=== PATIENT | female | born 1985 | race Caucasian/White ===

== ENCOUNTER 2021-10-01 14:10 | Observation (INO) ==
--- NOTE | 2021-10-01 14:38 | Emergency Department Note ---
Impression & Plan Acute appendicitis ED Provider Note Provider: Maged Crouch MD DATE OF SERVICE: 10/01/2021 CHIEF COMPLAINT: appy HISTORY OF PRESENT ILLNESS: Patient is a healthy 36-year-old female presenting here in transfer from [facility]. She was evaluated there for abdominal pain starting mid abdomen yesterday to the right lower quadrant. No prior trauma reported. Not having vomiting issues. No fevers reported. No history of abdominal surgeries reported. At the outside facility had CMP as well as CBC without significant abnormality. No leukocytosis. CT imaging there showed a 12 mm appendix without evidence of perforation. They have no available general surgery care at their facility this weekend and thus contacted us for transfer. She arrives with a disc of her images as well as the reports. Had a negative COVID PCR at the outside facility. Patient has been n.p.o. since last night. She received a dose of Zosyn at the outside facility. Patient reports worsening pain with movement but denies receiving pain medication earlier or the want for pain medication at this time. REVIEW OF SYSTEMS: A total of 10 review of systems was obtained and negative except as stated above in the HPI. PAST MEDICAL HISTORY: As noted above MEDICATIONS: Vitamin SOCIAL HISTORY: Works as a veterinary technician, lives at home with her 3 children, nursing her youngest who is 4-1/2 months old PHYSICAL EXAM: GENERAL: alert and oriented in no acute distress on stretcher Head: normocephalic and atraumatic EYES: No injection, discharge or icterus. NECK: Trachea midline. Supple. ENT: Mucous membranes pink and moist. LUNGS: Airway patent. No retractions or tachypnea HEART: Regular rate and rhythm. No chest wall tenderness ABDOMEN: Soft right quadrant pain with guarding and some rebound SKIN: Acyanotic, warm, dry, without rashes EXTREMITIES: Without swelling, tenderness or deformity NEUROLOGICAL: No focal deficits. No aphasia. No facial droop or slurred speech. Ambulatory. Differential includes Appendicitis, ovarian cyst, ovarian torsion, ectopic , TOA, PID, infections, diverticulitis, UTI, obstruction, mesenteric ischemia, aortic pathology, inflammatory bowel disease, renal colic, PUD, pancreatitis, biliary pathology, hernia, volvulus, constipation, as well as other pathologies. IMPRESSION/MEDICAL DECISION MAKING: Patient with mid abdominal pain right lower quadrant. Outside facility did extensive work-up including CT scan showing appendicitis. Uncomplicated appendicitis and no history of significant surgical complications or abdominal surgeries. Blood work at the outside facility without evidence of COVID or evidence of significant cytosis or sepsis. Patient declines pain medicine here. She is well-appearing but does have some guarding and rebound on examination consistent with her diagnosis of appendicitis. Given Zosyn at the outside facility. Discussed with the surgical team here will evaluate for surgical treatment of her appendicitis. Patient does have her records including CD of the outside facility with her. DIAGNOSIS: Acute appendicitis DISPOSITION: Evaluation by the surgical team for appendectomy Past Med/Surg History Social History Smoking Status: Never smoker Feels Safe at Home: Yes Allergies Allergies Allergy/AdvReac Type Severity Reaction Status Date / Time No Known Allergies Allergy Unverified 09/12/12 14:09 Results & Data (ED) Vital Signs Vital Signs - 24 hr 10/01/21 14:23 10/01/21 14:44 Temperature 37.6 C H Temperature Source Temporal Artery Scan Pulse Rate 97 H Pulse Rate [Finger] 99 H Respiratory Rate 20 16 Respiratory Effort / Characteristics Non-Labored Spontaneous Respiratory Depth Normal Respiratory Pattern Regular Blood Pressure 91/54 L Blood Pressure [Left Arm] 103/53 L Blood Pressure Mean 66 Blood Pressure Mean [Left Arm] 69 Pulse Oximetry 97 99 Oxygen Delivery Method Room Air Room Air Sepsis Recent Fever Within 48 Hours No Sepsis New/Unexplained Change in Mental Status No Sepsis Action Taken by Nursing No Action Required Discharge Plan Visit Data Chief Complaint: Referred by Doctor Stated Complaint: APPENDICTIS;REFERRED FOR SURGERY ED Provider: Maged Crouch Discharge Problem: Acute appendicitis Patient Disposition: Being Evaluated by Surgeon Forms Stand Alone Forms: [facility] Referrals Referrals: PCP,NO [Primary Care Provider] - Discharge Problem: Acute appendicitis Qualifiers: Acute appendicitis type: with localized peritonitis Appendicitis gangrene presence: unspecified whether gangrene present Appendicitis perforation presence: without perforation Appendicitis abscess presence: without abscess Qualified Code(s): K35.30 - Acute appendicitis with localized peritonitis, without perforation or gangrene
[2021-10-01] MEDS ORDERED: ONDANSETRON INJ 2 MG/ML 2 ML VIAL IV PRN (15:52)
[2021-10-01] MEDS ORDERED: PIPERACILLIN/TAZOBACTAM 3.375 GM in DEXTROSE 5% 100 ML IV ONE (16:00)
--- NOTE | 2021-10-01 16:30 | History & Physical Report ---
Date of Service October 01, 2021 Assessment & Plan (1) Acute appendicitis: Plan: 36-year-old female who was transferred from [facility] with diagnosis of acute appendicitis. Pain started yesterday morning which was generalized in the mid abdomen and then radiated down to the right lower side. Labs at [facility] showed no leukocytosis. CT scan of the abdomen pelvis with IV contrast showing dilated appendix to 12 mm with periappendiceal inflammation and no evidence of abscess or perforation. On examination she is tender in the right mid to right lower quadrant with some guarding and positive McBurney's point however no rigidity or peritonitis. Plan: Discussed imaging and lab findings with patient and her family. These are consistent with acute appendicitis as well as her examination. Discussed indication for laparoscopic appendectomy to prevent further pain and perforation or abscess. Discussed procedure including risks of procedure including bleeding, infection, injury to surrounding organs tissues, staple line leak, intra-abdominal abscess, incisional hernia, blood clots. Also discussed expected recovery time and restrictions. Patient will sign informed consent with Dr. Macias preoperatively Will continue antibiotics in the form of IV Zosyn Keep n.p.o. She was already COVID tested at [facility] with PCR testing which was negative. Discussed with Dr. Macias who will evaluate patient preoperatively and obtain informed consent History of Present Illness Chief Complaint: Acute appendicitis Primary Care Provider: AVIS PCP Nicki is a 36-year-old female who was transferred from [facility] for acute appendicitis. She states that she started having generalized mid abdominal pain yesterday morning which then radiated down to her right lower side. She was seen in [facility] when she had labs which showed no leukocytosis. She had a CT scan of the abdomen and pelvis with IV contrast which showed dilated appendix a 12 mm with surrounding inflammation however no evidence of abscesses or perforation. She had COVID PCR testing which was negative. She was given a dose of IV Zosyn. She has had no prior abdominal surgery. She is currently breast-feeding. Has a history of some vague abdominal bloating and discomfort in which she saw gastroenterology last year who recommended daily to twice daily Benefiber. Allergies Allergy/AdvReac Type Severity Reaction Status Date / Time No Known Allergies Allergy Unverified 10/01/21 16:06 Home Medications Medication Instructions Recorded Confirmed Type ascorbic acid (vitamin C) 100 mg 0 mg PO QPM 10/01/21 10/01/21 History tablet (Vitamin C) biotin 1 mg tablet 0 mg PO QAM 10/01/21 10/01/21 History cholecalciferol (vitamin D3) 10 0 mcg PO QPM 10/01/21 10/01/21 History mcg (400 unit) capsule (Vitamin D3) lactobacillus combination no.4 3 0 mmu cells PO QPM 10/01/21 10/01/21 History billion cell capsule (Probiotic) magnesium 30 mg tablet 0 mg PO DAILY 10/01/21 10/01/21 History vitamins no.144-folic 1 tab PO QAM 10/01/21 10/01/21 History acid 400 mcg chewable tablet () Past Med/Surg History Social History Smoking Status: Never smoker Feels Safe at Home: Yes Review of Systems Review of Systems: All systems reviewed & are unremarkable except as noted in HPI & below Constitutional: no fever, no chills and no sweats Gastrointestinal: no bloating, no nausea and no vomiting Genitourinary: no dysuria, no difficulty urinating, no urinary frequency and no hematuria Physical Exam Constitutional: WD/WN, vitals as above no acute distress and not ill appearing Neck: normal visual inspection and trachea midline Respiratory: normal respiratory effort, lungs clear to auscultation Cardiovascular: RRR, no murmur, no edema Gastrointestinal (Abdomen): Inspection/Auscultation: abdomen normal to i nspection; abdomen not distended Percussion/Palpation: + abdomen tender (Right lower quadrant and right mid abdomen), + guarding (Voluntary and right lower quadrant right mid abdomen) and abdomen soft; abdomen not rigid and abdomen not firm Skin: no rashes, warm and dry Psychiatric: A+Ox3, euthymic affect Results & Data Results & Data ([facility]) Vital Signs (Past 12 Hours) Vital Signs Temp Pulse Pulse Resp BP BP Pulse Ox 10/01/21 14:44 99 H 16 103/53 L 99 10/01/21 14:23 37.6 C H 97 H 20 91/54 L 97 Laboratory Results Outside laboratory results at [facility] show no leukocytosis. CMP within normal limits. Diagnostic Findings Outside CT scan of abdomen pelvis with IV contrast that [facility] showing dilated appendix at 12 mm with associated periappendiceal inflammation consistent with acute appendicitis appendix sits in the right pericolic gutter. No evidence of perforation or abscess. Code Status & VTE Plan VTE Prophylaxis Plan VTE Prophylaxis will be ordered: Yes (1) Acute appendicitis Acute appendicitis type: with localized peritonitis Appendicitis abscess presence: without abscess Appendicitis gangrene presence: unspecified whether gangrene present Appendicitis perforation presence: without perforation Qualified Code(s): K35.30 - Acute appendicitis with localized peritonitis, without perforation or gangrene
[2021-10-01] MEDS: KETOROLAC TROMETHAMINE 15 MG/ML VIAL IV PRN (16:45)
[2021-10-01] MEDS: LACTATED RINGER'S 1,000 ML IV SCH (17:51)
--- NOTE | 2021-10-01 19:27 | Anesthesiology Consultation ---
Date of Service October 01, 2021 Assessment & Plan (1) Encounter for pre-operative examination: Chart Review Chart Review: Acceptable Risk for Surgery and Patient NOT seen in Pre Admission Testing Consults Requested none History Surgery Operation Date: 10/01/21 15:00 Proposed Procedures p Laparoscopic Appendectomy - Keenan Macias MD Height/Weight Height: 5 ft 1 in Weight: 55.8 kg Allergies Allergy/AdvReac Type Severity Reaction Status Date / Time No Known Allergies Allergy Unverified 10/01/21 16:06 Medications Home Medications Medication Instructions Recorded Confirmed Last Taken ascorbic acid (vitamin C) 100 mg 0 mg PO QPM 10/01/21 10/01/21 Unknown tablet (Vitamin C) biotin 1 mg tablet 0 mg PO QAM 10/01/21 10/01/21 Unknown cholecalciferol (vitamin D3) 10 0 mcg PO QPM 10/01/21 10/01/21 Unknown mcg (400 unit) capsule (Vitamin D3) lactobacillus combination no.4 3 0 mmu cells PO QPM 10/01/21 10/01/21 Unknown billion cell capsule (Probiotic) magnesium 30 mg tablet 0 mg PO DAILY 10/01/21 10/01/21 Unknown vitamins no.144-folic 1 tab PO QAM 10/01/21 10/01/21 Unknown acid 400 mcg chewable tablet () Active Medications Generic Name Dose Route Start Last Admin Trade Name Freq PRN Reason Stop Dose Admin Lactated Ringer's 1,000 mls @ 100 mls/hr 10/01/21 16:00 10/01/21 17:51 Lr IV 10/31/21 15:59 100 mls/hr .Q10H FABRICE Administration Ketorolac Tromethamine 15 mg 10/01/21 15:52 10/01/21 16:45 Ketorolac Tromethamine 15 Mg/Ml Vial IV 10/06/21 15:51 15 mg Q6H PRN Administration Pain & Pre PT Social History Smoking Status: Never smoker Hx Alcohol Use: No Hx Substance Use: No Physical Exam Vital Signs Last Vital Signs Temp 99.0 F 10/01/21 17:22 Pulse 89 10/01/21 17:22 Resp 18 10/01/21 17:22 BP 103/68 10/01/21 17:22 Pulse Ox 97 10/01/21 17:22
[2021-10-01 19:28] LABS: Creatinine Clr Calc Pharmacy 66.9 ml/min; Est GFR (African American) 99.3 ml/min; Est GFR (Non-African American) 85.7 ml/min
[2021-10-01] MEDS: PIPERACILLIN/TAZOBACTAM 3.375 GM in DEXTROSE 5% 100 ML IV SCH (22:09)
[2021-10-02] MEDS: LACTATED RINGER'S 1,000 ML IV SCH ×3 (03:22→22:31)
[2021-10-02] MEDS: PIPERACILLIN/TAZOBACTAM 3.375 GM in DEXTROSE 5% 100 ML IV SCH ×3 (05:30→22:31)
[2021-10-02] MEDS ORDERED: MIDAZOLAM HCL 1 MG/ML 2ML VIAL ONE (07:06)
[2021-10-02] MEDS ORDERED: NEOSTIGMINE METHYLSULFATE 1 MG/ML 10ML VIAL ONE (07:07)
[2021-10-02] MEDS ORDERED: ONDANSETRON INJ 2 MG/ML 2 ML VIAL ONE ×2 (07:07→07:25)
[2021-10-02] MEDS ORDERED: fentaNYL citrate 100 MCG/2 ML VIAL ONE (07:07)
[2021-10-02] MEDS ORDERED: DEXAMETHASONE SOD INJ 4 MG/ML VIAL ONE (07:07)
[2021-10-02] MEDS ORDERED: GLYCOPYRROLATE 0.2 MG/ML VIAL ONE (07:07)
[2021-10-02] MEDS ORDERED: ROCURONIUM BROMIDE 10 MG/ML 5 ML VIAL IV ONE (07:07)
--- NOTE | 2021-10-02 07:31 | History & Physical Bridge Note ---
Date of Service October 02, 2021 History & Physical Bridge Note I have examined the patient, reviewed the History & Physical and in the interval since the performance of the History & Physical I have noted the following changes of clinical significance: no changes noted
[2021-10-02] MEDS ORDERED: EPINEPHrine INJ 1 MG/ML AMP ONE (07:34)
[2021-10-02] MEDS ORDERED: BUPIVACAINE 0.5 % 5 MG/1 ML MPF 30ML VIAL ONE (07:34)
[2021-10-02] MEDS ORDERED: ONDANSETRON INJ 2 MG/ML 2 ML VIAL IV PRN (07:52)
[2021-10-02] MEDS ORDERED: ATROPINE SULFATE 0.1 MG/ML 10ML SYR IV PRN (07:52)
[2021-10-02] MEDS ORDERED: fentaNYL citrate 100 MCG/2 ML VIAL IV PRN (07:52)
[2021-10-02] MEDS ORDERED: ePHEDrine sulfate 50 MG/ML AMP IV PRN (07:52)
--- NOTE | 2021-10-02 08:39 | Post Operative Brief Note ---
Immediate Post Op Note v1 Date of Surgery October 02, 2021 Pre & Post Diagnosis Operation Date: 10/02/21 07:30 Pre-Op Diagnosis: Acute appendicitis Post-Op Diagnosis: Acute appendicitis I identified the patient and participated in the time-out.: Yes Procedure Operation Date: 10/02/21 07:30 Actual Procedures p Laparoscopic Appendectomy(Not Applicable) - Keenan Macias MD Surgeon Keenan Macias MD [employer] Technician none Estimated Blood Loss 5 Findings Consistent with Post-Op Diagnosis acute appendicitis
--- NOTE | 2021-10-02 09:00 | Anesthesiology Progress Note ---
Date of Service October 02, 2021 Anesthesia Post Procedure Vital Signs Vital Signs: Temp Pulse Pulse Resp BP BP Pulse Ox 10/02/21 03:28 98.6 F 89 16 98/62 L 99 10/01/21 22:59 98.4 F 94 H 18 95/59 L 99 10/01/21 17:22 99.0 F 89 18 103/68 97 10/01/21 16:48 91 H 16 101/52 L 96 10/01/21 14:44 99 H 16 103/53 L 99 10/01/21 14:23 99.7 F H 97 H 20 91/54 L 97 Pain Intensity Right Lower Abdomen: Pain Intensity: 1 Transfer of Care Handoff Completed per policy Notes Mental Status: alert / awake / arousable and participated in evaluation Patient Amnestic to Procedure: Yes Nausea / Vomiting: adequately controlled Pain: adequately controlled Airway Patency, RR, SpO2: stable & adequate BP & HR: stable & adequate Hydration State: stable & adequate Anesthetic Complications: no major complications apparent and Pt Satisfied with anesthetic care
[2021-10-02] MEDS ORDERED: MoRPHine SULFATE 4 MG/ML 1 ML CARP\\VIAL IV PRN (11:35)
[2021-10-02] MEDS ORDERED: MoRPHine SULFATE 2 MG/ML CARP IV PRN (11:35)
[2021-10-02] MEDS ORDERED: oxyCODONE/ACETAMINOPHEN 5mg/325mg TAB PO PRN ×2 (11:35)
--- NOTE | 2021-10-02 14:36 | Operative Report (OR) ---
DATE OF SURGERY: 10/02/2021. PREOPERATIVE DIAGNOSIS: Acute appendicitis. POSTOPERATIVE DIAGNOSIS: Acute appendicitis. PROCEDURE PERFORMED: Laparoscopic appendectomy. SURGEON: Keenan Macias MD. ANESTHESIA: General endotracheal 0.5% Marcaine with local. ESTIMATED BLOOD LOSS: 5 mL. COMPLICATIONS: None. DRAINS: None. PATHOLOGY: Appendix sent for pathologic evaluation. INDICATIONS FOR OPERATION: This is a 36-year-old female who came in to the ED complaining of acute a bdominal pain, underwent workup, which showed an obvious acute appendicitis. She was admitted, place d on IV antibiotics, IV fluids, will be taken to the OR for laparoscopic appendectomy. We talked to her in detail about the risk of an open procedure, bleeding, infection, ileus and wound problems. Solitario yanez understands this and wished to proceed. DESCRIPTION OF PROCEDURE: The patient was taken to the OR and underwent excellent general endotrache al anesthesia. The abdomen was prepped and draped in a normal sterile fashion. A transverse supraum bilical incision was made and dissection was taken down to identify the fascia. A Veress needle was then inserted with tension on the anterior abdominal wall. Pneumoperitoneum was then achieved and a visualized 11 port was placed. 5 suprapubic, 5 right upper quadrant and 12 left lower quadrant port were placed in normal fashion. The patient was placed in head down and rolled to the left. Good sawyer gnostic view was taken, the appendix could be seen as it was tethered to the right lateral abdominal wall with some inflammatory tissue. A grasper was placed on the base of the cecum and the appendix was freed. The mesoappendix was ident ified and taken down with a Harmonic scalpel. A NAGA 45 wong load was then used to transect the append ix at its base. The appendix was then placed in an Endobag and brought out through the left lower qu adrant port. The port was then replaced and the pneumoperitoneum was reestablished. The abdomen was then irrigated out 500 mL of saline. There was no bleeding on the staple line. No other abnormalit ies were noted. The patient tolerated the procedure without complications, was sent to post-recovery period of observation, will be sent to floor for her care. Job ID: [id number]
[2021-10-02] MEDS: KETOROLAC TROMETHAMINE 15 MG/ML VIAL IV PRN (18:05)
[2021-10-03] MEDS: PIPERACILLIN/TAZOBACTAM 3.375 GM in DEXTROSE 5% 100 ML IV SCH (05:04)
[2021-10-03] MEDS: KETOROLAC TROMETHAMINE 15 MG/ML VIAL IV PRN (05:18)
[2021-10-03] MEDS: LACTATED RINGER'S 1,000 ML IV SCH (07:44)
--- NOTE | 2021-10-04 07:29 | Discharge Summary (DS) ---
DATE OF ADMISSION: 10/01/2021 DATE OF DISCHARGE: 10/03/2021. DIAGNOSIS: Acute appendicitis. ATTENDING PHYSICIAN: Keenan Macias MD HISTORY OF PRESENT ILLNESS: This is a 36-year-old female who was admitted with acute appendicitis. She was placed on IV fluids, IV antibiotics and was taken to the OR for laparoscopic appendectomy. HOSPITAL COURSE: The patient was admitted late on Monday night, was hydrated, given IV antibiotics, taken to the OR the next morning underwent an uncomplicated laparoscopic appendectomy. She did well postoperatively as her diet and activity were advanced without difficulty. She had good pain control without narcotics. We will plan to discharge her on postoperative day #1. DISCHARGE MEDICATIONS: Biotin p.o. q.a.m., vitamin D p.o. q.p.m., magnesium p.o. daily, vit wall 1 tablet q.a.m., probiotic q.p.m., vitamin C p.o. q.p.m. ACTIVITY: No strenuous activity. FOLLOWUP: In 2 weeks in my office. DIET: As tolerated, regular. Job ID: [id number]
== END 2021-10-03 11:55 | disposition home or self-care (01) ==
LOC: 3N 14:10 → ED 14:10 → 3N 16:48
DX: K35.80 Unspecified acute appendicitis